=== PATIENT | female | born 1945 | race American Indian/Alaskan Native ===

== ENCOUNTER 2020-07-29 10:32 | Day surgery (SDC) | payer MEDICARE ==
[2020-07-29 11:35] LABS: #Basophils 0.1 thou/uL (0.0-0.2); #Eosinphils 0.2 thou/uL (0.0-0.7); #Lymphocytes 1.6 thou/uL (1.20-3.40); #Monocytes 0.5 thou/uL (0.11-0.59); #Neutrophils 3.3 thou/uL (1.40-6.50); %Basophils 1.4 % (0.0-1.0); %Eosinophils 3.8 % (0.0-10.0); %Lymphocytes 28.4 % (21.0-51.0); %Monocytes 7.9 % (0.0-10.0); %Neutrophils 58.4 % (42.0-75.0); Hemoglobin 11.8 g/dL (12.0-16.0); Mean Corpuscular HGB CONC 32.6 g/dL (32.0-36.0); Mean Corpuscular Hemoglobin 31.2 pg (27.0-31.0); Mean Platelet Volume 7.6 fL (7.4-10.4); Platelet Count 255 thou/uL (130-400); RBC Distribution Width 12.6 % (11.5-14.5); Red Blood Cell (RBC) Count 3.79 mill/uL (4.20-5.40); White Blood Cell (WBC) Count 5.6 thou/uL (4.8-10.8)
[2020-07-29 11:51] LABS: Anion Gap 9 mmol/L (10-20); BUN (Urea Nitrogen) 11 mg/dL (9.8-20.1); Calc. Creatinine Clearance 80 mL/min (70-130); Calcium 9.1 mg/dL (7.8-10.44); Carbon Dioxide 29 mmol/L (23-31); Chloride 106 mmol/L (98-107); Estimated GFR-MDRD Greater than 90; Glucose 82 mg/dL (83-110); Potassium 4.1 mmol/L (3.5-5.1); Sodium 140 mmol/L (136-145)
[2020-07-29] MEDS ORDERED: Dexmedetomidine 200 MCG/2 ML VIAL ONE (13:45)
[2020-07-29] MEDS ORDERED: Fentanyl 100 MCG/2 ML VIAL ONE (13:45)
[2020-07-29] MEDS ORDERED: Lidocaine 2% PF 5 ML VIAL ONE (13:58)
[2020-07-29] MEDS ORDERED: Bupivacaine HCl 0.5%/Epinephrine 1:200,000/PF 30 ml Vial ONE (13:58)
[2020-07-29] MEDS ORDERED: Midazolam HCl 5 mg/5 ml Vial ONE (14:09)
[2020-07-29] MEDS ORDERED: Ketamine 50 MG/ML (10ML VIAL) ONE (14:09)
--- NOTE | 2020-07-29 22:55 | OP ---
DATE OF PROCEDURE: 07/29/2020 PREOPERATIVE DIAGNOSIS: Skin malignancy, back, 3 cm. POSTOPERATIVE DIAGNOSIS: Skin malignancy, back, 3 cm. PROCEDURES PERFORMED: 1. Wide local excision, 3 cm of malignant skin cancer back. 2. Complex layered closure, 9 cm in length. ANESTHESIA: TIVA, local. ESTIMATED BLOOD LOSS: Minimal. COMPLICATIONS: None. SPECIMENS: Skin full-thickness marked with two short superior and one long lateral sent to Path for final diagnosis. DESCRIPTION OF PROCEDURE: The patient was taken to the operating room and laid on the supine on the operating room table. After general anesthetic was obtained, she was placed in a right lateral decubitus position. Her back wound was prepped and draped in a sterile fashion. In order to ellipse out with negative margin, it was a 3 cm in diameter incision so that made a 9 cm in length incision. Local anesthetic was applied, and the elliptical incision was made all the way down to the fascia. Extensive undermining was performed in order to allow for closure under no tension. The specimen was marked with 2 short superior and 1 long lateral sent to Path for final diagnosis. The wound was closed using 3-0 Vicryl, 4-0 Monocryl, and Dermabond. The patient was sent to Recovery in stable condition. All instrument counts, needle counts, and lap counts were correct. Job ID: [id number]
== END 2020-07-29 18:37 ==
LOC: SDC 10:32
PROVIDERS: ATTEND Surgery
PROC: 0HB6XZZ Excision of Back Skin, External Approach (ICD-10-PCS; principal; 2020-07-29)
DX: C44.519 Basal cell carcinoma of skin of other part of trunk (principal); K21.9 Gastro-esophageal reflux disease without esophagitis; M06.9 Rheumatoid arthritis, unspecified; J44.9 Chronic obstructive pulmonary disease, unspecified; I11.9 Hypertensive heart disease without heart failure; F31.9 Bipolar disorder, unspecified; M19.90 Unspecified osteoarthritis, unspecified site; Z79.899 Other long term (current) drug therapy; Z87.891 Personal history of nicotine dependence; Z88.1 Allergy status to other antibiotic agents
CPT/HCPCS: 36415; 80048; 85025; 88305; J0690; J2001; J2250; J3010

== ENCOUNTER 2023-01-29 09:19 | Inpatient (IN) | payer MEDICARE, OTHER ==
[~2023-01-29 09:19] MED LIST: Iopamidol-370 76% 500 ML MDV (1 ML CHARGE) ONE
[2023-01-29] MEDS ORDERED: Cefepime 2 GM VIAL ONE (10:08)
[2023-01-29] MEDS ORDERED: Acetaminophen 500 MG TAB ONE (10:12)
[2023-01-29 10:57] LABS: #Eosinphils 0.2 thou/uL (0.0-0.7); #Lymphocytes 1.3 thou/uL (1.20-3.40); #Monocytes 0.4 thou/uL (0.11-0.59); #Neutrophils 1.4 thou/uL (1.40-6.50); %Basophils 0.8 % (0.0-1.0); %Eosinophils 4.7 % (0.0-10.0); %Lymphocytes 39.6 % (21.0-51.0); %Monocytes 11.6 % (0.0-10.0); %Neutrophils 43.3 % (42.0-75.0); Hemoglobin 11.2 g/dL (12.0-16.0); Mean Corpuscular HGB CONC 33.7 g/dL (32.0-36.0); Mean Corpuscular Hemoglobin 33.7 pg (27.0-31.0); Mean Platelet Volume 7.7 fL (7.4-10.4); Platelet Count 201 10x3/uL (130-400); Red Blood Cell (RBC) Count 3.32 mill/uL (4.20-5.40); White Blood Cell (WBC) Count 3.3 10x3/uL (4.8-10.8)
[2023-01-29 11:19] LABS: ALT (SGPT) Less than 7 U/L (8-55); AST (SGOT) 20 U/L (5-34); Albumin 3.2 g/dL (3.4-4.8); Alkaline Phosphatase 78 U/L (40-110); Anion Gap 12 mmol/L (10-20); BUN (Urea Nitrogen) 21 mg/dL (9.8-20.1); Bilirubin, Total 0.4 mg/dL (0.2-1.2); Calc. Creatinine Clearance 0 mL/min (70-130); Calcium 9.4 mg/dL (7.8-10.44); Carbon Dioxide 24 mmol/L (23-31); Chloride 106 mmol/L (98-107); Estimated GFR 81; Globulin 5.2 g/dL (2.4-3.5); Glucose 116 mg/dL (83-110); Lipase 24 U/L (8-78); Protein, Total 8.4 g/dL (5.8-8.1); Sodium 138 mmol/L (136-145)
[2023-01-29] MEDS ORDERED: Vancomycin 1 GM/200 ML (FROZEN) BAG ONE (11:54)
[2023-01-29] MEDS ORDERED: Polyvinyl Alcohol 1.4%/Povidone 0.6% Opth Drops EA EYE PRN (13:05)
[2023-01-29] MEDS ORDERED: Senokot S 8.6-50 MG TAB PO PRN (13:11)
[2023-01-29] MEDS ORDERED: Ondansetron ODT 4 MG TAB PO PRN (13:11)
[2023-01-29] MEDS ORDERED: Calcium Carbonate 500 MG ChewTAB PO PRN (13:11)
[2023-01-29] MEDS ORDERED: Ondansetron PF 4 MG/2 ML Vial IVP PRN (13:11)
[2023-01-29] MEDS ORDERED: Acetaminophen 325 MG TAB PO PRN (13:11)
[2023-01-29 13:22] LABS: Bacteria/HPF 4+ HPF (None Seen); Bilirubin Negative (Negative); Blood, Urine 2+ (Negative); Clarity Turbid (Clear); Glucose, Urine (Dipstick) Normal (Negative); Ketone, Urine Negative (Negative); Leukocyte 500 Leu/uL (Negative); Nitrite 2+ (Negative); Protein, Urine (Dipstick) 50 mg/dL (Neg-Trace); RBC/HPF 21-50 HPF (0-3); Specific Gravity, Urine 1.034 (1.002-1.036); Squamous Epithelial None Seen HPF (0-3); Urobilinogen Normal mg/dL (Less than 2); WBC/HPF Greater than 50 HPF (0-3); pH, Urine 6.5 (5.0-9.0)
[2023-01-29] MEDS ORDERED: Sodium Chloride 0.9% 1,000 ML IV SCH (14:00)
[2023-01-29] MEDS ORDERED: fentaNYL 50 mcg/mL 1 mL Vial ONE (14:21)
[2023-01-29] MEDS ORDERED: SUGAMMADEX SODIUM 200 MG/2 ML VIAL ONE (14:21)
[2023-01-29] MEDS ORDERED: KETAMINE 100 MG/ML (5ML VIAL) ONE (14:37)
[2023-01-29] MEDS ORDERED: Midazolam HCl 2 mg/2 ml Vial ONE (14:37)
[2023-01-29 14:50] LABS: Lactic Acid 1.1 mmol/L (0.5-2.2)
[2023-01-29] MEDS ORDERED: Ondansetron HCl/PF 4 MG/2 ML Vial IVP PRN (15:18)
[2023-01-29] MEDS: Sodium Chloride 0.9% 1,000 ML IV SCH (17:29)
[2023-01-29 17:33] VITALS: BMI 24.4
[2023-01-29] MEDS ORDERED: HYDROcodone/Acetaminophen 5/325 mg Tablet PO SCH (17:45)
[2023-01-29] MEDS: ALPRAZolam 0.5 MG TAB PO SCH (21:21)
[2023-01-29] MEDS: Cefepime 1 GM in Sodium Chloride 0.9% 100 ML IVPB SCH (21:21)
[2023-01-29] MEDS: traZODone HCl 50 MG TAB PO SCH (21:21)
[2023-01-29] MEDS ORDERED: HYDROcodone/Acetaminophen 5/325 mg Tablet PO PRN (22:00)
[2023-01-30] MEDS: Sodium Chloride 0.9% 1,000 ML IV SCH (03:17)
[2023-01-30 09:16] LABS: ALT (SGPT) Less than 7 U/L (8-55); AST (SGOT) 14 U/L (5-34); Albumin 2.8 g/dL (3.4-4.8); Alkaline Phosphatase 71 U/L (40-110); Anion Gap 11 mmol/L (10-20); BUN (Urea Nitrogen) 14 mg/dL (9.8-20.1); Bilirubin, Total 0.4 mg/dL (0.2-1.2); Calc. Creatinine Clearance 80 mL/min (70-130); Calcium 8.6 mg/dL (7.8-10.44); Carbon Dioxide 20 mmol/L (23-31); Chloride 114 mmol/L (98-107); Estimated GFR 92; Globulin 4.6 g/dL (2.4-3.5); Glucose 77 mg/dL (83-110); Potassium 3.7 mmol/L (3.5-5.1); Protein, Total 7.4 g/dL (5.8-8.1); Sodium 141 mmol/L (136-145)
[2023-01-30] MEDS: risperiDONE 1 MG TAB PO SCH (09:20)
[2023-01-30] MEDS: DULoxetine 60 MG CAP PO SCH (09:21)
[2023-01-30] MEDS: buPROPion 75 MG TAB PO SCH (09:21)
[2023-01-30] MEDS: ALPRAZolam 0.5 MG TAB PO SCH ×2 (09:21→20:30)
[2023-01-30 10:46] LABS: Band 3 % (5-11); Hemoglobin 10.6 g/dL (12.0-16.0); Lymphocytes 45 % (21-51); MDiff Complete? YES; Mean Corpuscular HGB CONC 32.4 g/dL (32.0-36.0); Mean Corpuscular Hemoglobin 33.2 pg (27.0-31.0); Mean Platelet Volume 7.6 fL (7.4-10.4); Monocytes 14 % (0-10); Neutrophil 38 % (42-75); Platelet Count 195 10x3/uL (130-400); RBC Distribution Width 12.9 % (11.5-14.5); RBC Morphology Normal; Red Blood Cell (RBC) Count 3.21 mill/uL (4.20-5.40); White Blood Cell (WBC) Count 4.1 10x3/uL (4.8-10.8)
[2023-01-30] MEDS ORDERED: diphenhydrAMINE 50 MG/ML VIAL IVP PRN (11:24)
[2023-01-30] MEDS: Cefepime 1 GM in Sodium Chloride 0.9% 100 ML IVPB SCH (11:50)
[2023-01-30] MEDS ORDERED: VANCOMYCIN 1.25 GM/250 ML BAG 1.25 GM in Premix Bag 1 BAG IVPB SCH (12:00)
[2023-01-30] MEDS ORDERED: Piperacillin/Tazobactam 3.375 GM in Sodium Chloride 0.9% 100 ML IVPB SCH (12:00)
[2023-01-30] MEDS: Piperacillin/Tazobactam 3.375 GM in Sodium Chloride 0.9% 100 ML IVPB SCH ×2 (16:05→23:55)
[2023-01-30] MEDS: traZODone HCl 50 MG TAB PO SCH (20:30)
[2023-01-31 08:20] LABS: #Eosinphils 0.1 thou/uL (0.0-0.7); #Lymphocytes 1.8 thou/uL (1.20-3.40); #Monocytes 0.6 thou/uL (0.11-0.59); #Neutrophils 2.9 thou/uL (1.40-6.50); %Basophils 0.5 % (0.0-1.0); %Eosinophils 1.2 % (0.0-10.0); %Lymphocytes 32.8 % (21.0-51.0); %Monocytes 11.6 % (0.0-10.0); %Neutrophils 53.9 % (42.0-75.0); Mean Corpuscular HGB CONC 34.2 g/dL (32.0-36.0); Mean Corpuscular Hemoglobin 34.4 pg (27.0-31.0); Mean Platelet Volume 7.5 fL (7.4-10.4); Platelet Count 199 10x3/uL (130-400); RBC Distribution Width 12.8 % (11.5-14.5); Red Blood Cell (RBC) Count 2.91 mill/uL (4.20-5.40); White Blood Cell (WBC) Count 5.4 10x3/uL (4.8-10.8)
[2023-01-31 08:49] LABS: Anion Gap 10 mmol/L (10-20); BUN (Urea Nitrogen) 14 mg/dL (9.8-20.1); Calc. Creatinine Clearance 76 mL/min (70-130); Calcium 8.7 mg/dL (7.8-10.44); Carbon Dioxide 21 mmol/L (23-31); Chloride 109 mmol/L (98-107); Estimated GFR 91; Glucose 81 mg/dL (83-110); Potassium 3.3 mmol/L (3.5-5.1); Sodium 137 mmol/L (136-145)
[2023-01-31] MEDS ORDERED: Potassium Chloride 20 MEQ TAB PO SCH (09:00)
[2023-01-31] MEDS: DULoxetine 60 MG CAP PO SCH (09:27)
[2023-01-31] MEDS: Piperacillin/Tazobactam 3.375 GM in Sodium Chloride 0.9% 100 ML IVPB SCH ×2 (09:27→16:15)
[2023-01-31] MEDS: traMADol HCl 50 MG TAB PO SCH ×4 (09:27→20:09)
[2023-01-31] MEDS: buPROPion 75 MG TAB PO SCH (09:27)
[2023-01-31] MEDS: ALPRAZolam 0.5 MG TAB PO SCH ×2 (09:27→20:01)
[2023-01-31] MEDS: risperiDONE 1 MG TAB PO SCH (09:28)
[2023-01-31] MEDS: traZODone HCl 50 MG TAB PO SCH (20:01)
[2023-02-01] MEDS: Piperacillin/Tazobactam 3.375 GM in Sodium Chloride 0.9% 100 ML IVPB SCH ×3 (00:14→16:22)
[2023-02-01 06:58] LABS: Anion Gap 10 mmol/L (10-20); BUN (Urea Nitrogen) 11 mg/dL (9.8-20.1); Calc. Creatinine Clearance 78 mL/min (70-130); Calcium 8.8 mg/dL (7.8-10.44); Carbon Dioxide 24 mmol/L (23-31); Chloride 111 mmol/L (98-107); Estimated GFR 91; Glucose 80 mg/dL (83-110); Potassium 3.8 mmol/L (3.5-5.1); Sodium 141 mmol/L (136-145)
[2023-02-01] MEDS: buPROPion 75 MG TAB PO SCH (09:36)
[2023-02-01] MEDS: ALPRAZolam 0.5 MG TAB PO SCH ×2 (09:36→20:35)
[2023-02-01] MEDS: DULoxetine 60 MG CAP PO SCH (09:36)
[2023-02-01] MEDS: risperiDONE 1 MG TAB PO SCH (09:36)
[2023-02-01] MEDS: traMADol HCl 50 MG TAB PO SCH ×4 (09:37→20:34)
[2023-02-01] MEDS: traZODone HCl 50 MG TAB PO SCH (20:34)
[2023-02-01 20:51] VITALS: TEMP 98.3
[2023-02-02] MEDS: Piperacillin/Tazobactam 3.375 GM in Sodium Chloride 0.9% 100 ML IVPB SCH ×2 (00:39→08:37)
[2023-02-02 01:06] VITALS: BP 128/81
[2023-02-02] MEDS: traMADol HCl 50 MG TAB PO SCH (08:37)
[2023-02-02] MEDS: ALPRAZolam 0.5 MG TAB PO SCH (08:37)
[2023-02-02] MEDS: risperiDONE 1 MG TAB PO SCH (08:38)
[2023-02-02] MEDS: buPROPion 75 MG TAB PO SCH (08:39)
[2023-02-02] MEDS: DULoxetine 60 MG CAP PO SCH (08:39)
== END 2023-02-02 11:41 | DRG 659 ==
LOC: ERS 09:19 → SUATTDRO 09:19 → ERHOLD 13:28 → UNDOADMIN 13:28 → SDC 14:52 → T4-B 16:05
PROVIDERS: ADMIT Internal Medicine; ATTEND Family Medicine
PROC: 0T768DZ Dilation of Right Ureter with Intraluminal Device, Via Natural or Artificial Opening Endoscopic (ICD-10-PCS; principal; 2023-01-29)
DX: N13.6 Pyonephrosis (principal); G93.41 Metabolic encephalopathy; Z66 Do not resuscitate; J44.9 Chronic obstructive pulmonary disease, unspecified; B18.2 Chronic viral hepatitis C; F03.90 Unspecified dementia, unspecified severity, without behavioral disturbance, psychotic disturbance, mood disturbance, and anxiety; F31.9 Bipolar disorder, unspecified; M06.9 Rheumatoid arthritis, unspecified; K21.9 Gastro-esophageal reflux disease without esophagitis; Z88.1 Allergy status to other antibiotic agents; Z79.899 Other long term (current) drug therapy; Z90.49 Acquired absence of other specified parts of digestive tract; Z90.710 Acquired absence of both cervix and uterus
CPT/HCPCS: 36415; 51701; 71045; 74177; 74420; 80048; 80053; 81003; 81015; 83605; 83690; 84484; 85025; 87040; 87077; 87086; 87186; 93005; 93010; 96361; 96365; 96367; C2617; J0692; J1200; J1650; J2250; J2543; J3010; J3370-JW; J3490; J7050; Q9967

== ENCOUNTER 2023-02-13 14:19 | Outpatient (CLI) | payer MEDICARE ==
[2023-02-13 16:14] LABS: Mean Corpuscular HGB CONC 31.5 g/dL (32.0-36.0); Mean Corpuscular Hemoglobin 32.1 pg (27.0-33.0); Mean Corpuscular Volume 101.6 fl (81.6-98.3); Mean Platelet Volume 10.1 fl (7.4-10.4); Platelet Count 221 10x3/uL (150-450); RBC Distribution Width 14.6 % (11.5-14.5); Red Blood Cell (RBC) Count 3.12 10x6/uL (3.90-5.03); White Blood Cell (WBC) Count 3.6 10x3/uL (3.5-10.5)
[2023-02-13 16:20] LABS: Anion Gap 11 mmol/L (10-20); BUN (Urea Nitrogen) 13 mg/dL (9.8-20.1); Calc. Creatinine Clearance 0 mL/min (70-130); Calcium 8.7 mg/dL (7.8-10.44); Carbon Dioxide 29 mmol/L (23-31); Chloride 102 mmol/L (98-107); Estimated GFR 90; Glucose 99 mg/dL (83-110); Potassium 3.3 mmol/L (3.5-5.1); Sodium 139 mmol/L (136-145)
[2023-02-13 16:21] LABS: INR-International Normal Ratio 1.1; PTT 32.2 sec (22.0-33.0); Prothrombin Time 11.3 sec (9.5-12.1)
== END 2023-02-13 14:20 | disposition home or self-care (01) ==
LOC: LABBT 14:19
PROVIDERS: ATTEND Family Medicine
DX: Z01.818 Encounter for other preprocedural examination (principal); N20.1 Calculus of ureter
CPT/HCPCS: 80048; 85027; 85610; 85730; 93005; 93010

== ENCOUNTER 2023-03-18 09:52 | Inpatient (IN) | payer MEDICARE, OTHER ==
[2023-03-18] MEDS ORDERED: Ondansetron PF 4 MG/2 ML Vial ONE (10:24)
[2023-03-18 10:37] LABS: #Monocytes 0.3 thou/uL (0.11-0.59); #Neutrophils 3.3 thou/uL (1.40-6.50); %Basophils 0.2 % (0.0-1.0); %Lymphocytes 18.1 % (21.0-51.0); %Neutrophils 74.5 % (42.0-75.0); Hemoglobin 11.6 g/dL (12.0-16.0); Mean Corpuscular HGB CONC 32.6 g/dL (32.0-36.0); Mean Corpuscular Hemoglobin 33.3 pg (27.0-31.0); Mean Corpuscular Volume 102.3 fl (78.0-98.0); Mean Platelet Volume 9.7 fL (7.4-10.4); Platelet Count 195 10x3/uL (130-400); RBC Distribution Width 14.5 % (11.5-14.5); Red Blood Cell (RBC) Count 3.48 mill/uL (4.20-5.40); White Blood Cell (WBC) Count 4.4 10x3/uL (4.8-10.8)
[2023-03-18 11:02] LABS: ALT (SGPT) Less than 7 U/L (8-55); AST (SGOT) 14 U/L (5-34); Albumin 3.2 g/dL (3.4-4.8); Alkaline Phosphatase 78 U/L (40-110); Anion Gap 15 mmol/L (10-20); BUN (Urea Nitrogen) 21 mg/dL (9.8-20.1); Bilirubin, Total 0.6 mg/dL (0.2-1.2); Calc. Creatinine Clearance 0 mL/min (70-130); Calcium 8.7 mg/dL (7.8-10.44); Carbon Dioxide 21 mmol/L (23-31); Chloride 105 mmol/L (98-107); Estimated GFR 80; Globulin 4.8 g/dL (2.4-3.5); Glucose 104 mg/dL (83-110); Potassium 3.7 mmol/L (3.5-5.1); Sodium 137 mmol/L (136-145)
[2023-03-18 12:07] LABS: Bacteria/HPF 4+ HPF (None Seen); Bilirubin Negative (Negative); Blood, Urine 3+ (Negative); CAUTI Indications for Culture Dysuria,urgency,freq; Clarity Extra Turbid (Clear); Glucose, Urine (Dipstick) Normal (Negative); Ketone, Urine 10 mg/dL (Negative); Leukocyte 500 Leu/uL (Negative); Nitrite Negative (Negative); Protein, Urine (Dipstick) 100 mg/dL (Neg-Trace); Squamous Epithelial 0-3 HPF (0-3); Urobilinogen Normal mg/dL (Less than 2); WBC/HPF Greater than 50 HPF (0-3); pH, Urine 5.5 (5.0-9.0)
[2023-03-18 12:09] LABS: Urine Culture Reflex Yes Yes
[2023-03-18] MEDS ORDERED: Vancomycin 1 GM/200 ML (FROZEN) BAG ONE (13:09)
[2023-03-18] MEDS ORDERED: cefTRIAXone (ROCEPHIN) 1 GM VIAL ONE (13:09)
[2023-03-18] MEDS ORDERED: Senokot S 8.6-50 MG TAB PO PRN (15:07)
[2023-03-18] MEDS ORDERED: Acetaminophen 325 MG TAB PO PRN (15:07)
[2023-03-18] MEDS ORDERED: Meropenem 1 GM in Sodium Chloride 0.9% 100 ML IVPB SCH ×2 (15:15→23:59)
[2023-03-18] MEDS ORDERED: Sodium Chloride 0.9% 1,000 ML IV SCH (15:15)
[2023-03-18 17:31] VITALS: BMI 21.4
[2023-03-18] MEDS ORDERED: Piperacillin/Tazobactam 3.375 GM in Sodium Chloride 0.9% 100 ML IVPB SCH ×2 (18:00→20:00)
[2023-03-18] MEDS ORDERED: Ondansetron ODT 4 MG TAB PO PRN (20:48)
[2023-03-18] MEDS ORDERED: Ondansetron PF 4 MG/2 ML Vial IVP PRN (20:48)
[2023-03-18] MEDS: Piperacillin/Tazobactam 3.375 GM in Sodium Chloride 0.9% 100 ML IVPB SCH (21:35)
[2023-03-18] MEDS: DULoxetine 60 MG CAP PO SCH (21:37)
[2023-03-19] MEDS: Piperacillin/Tazobactam 3.375 GM in Sodium Chloride 0.9% 100 ML IVPB SCH ×3 (04:56→21:20)
[2023-03-19 07:10] LABS: #Eosinphils 0.1 thou/uL (0.0-0.7); #Monocytes 0.5 thou/uL (0.11-0.59); #Neutrophils 1.9 thou/uL (1.40-6.50); %Basophils 0.7 % (0.0-1.0); %Eosinophils 1.3 % (0.0-10.0); %Lymphocytes 44.6 % (21.0-51.0); %Monocytes 11.3 % (0.0-10.0); %Neutrophils 41.9 % (42.0-75.0); Hemoglobin 9.2 g/dL (12.0-16.0); Mean Corpuscular HGB CONC 31.9 g/dL (32.0-36.0); Mean Corpuscular Hemoglobin 32.6 pg (27.0-31.0); Mean Corpuscular Volume 102.1 fl (78.0-98.0); Platelet Count 149 10x3/uL (130-400); RBC Distribution Width 14.6 % (11.5-14.5); Red Blood Cell (RBC) Count 2.82 mill/uL (4.20-5.40); White Blood Cell (WBC) Count 4.5 10x3/uL (4.8-10.8)
[2023-03-19 07:31] LABS: Anion Gap 5 mmol/L (10-20); BUN (Urea Nitrogen) 15 mg/dL (9.8-20.1); Calc. Creatinine Clearance 64 mL/min (70-130); Calcium 8.4 mg/dL (7.8-10.44); Carbon Dioxide 26 mmol/L (23-31); Chloride 108 mmol/L (98-107); Estimated GFR 90; Glucose 86 mg/dL (83-110); Potassium 3.1 mmol/L (3.5-5.1); Sodium 136 mmol/L (136-145)
[2023-03-19] MEDS ORDERED: Potassium Chloride 20 MEQ TAB PO SCH (09:00)
[2023-03-19] MEDS ORDERED: Famotidine 20 MG TAB PO SCH (09:00)
[2023-03-19] MEDS ORDERED: Bupropion 150 MG XL TAB PO SCH (09:00)
[2023-03-19] MEDS: ALPRAZolam 0.5 MG TAB PO SCH ×2 (09:32→21:19)
[2023-03-19] MEDS: risperiDONE 1 MG TAB PO SCH (09:32)
[2023-03-19] MEDS: Divalproex Sodium 250 MG (DR) TAB PO SCH (09:32)
[2023-03-19] MEDS: traMADol HCl 50 MG TAB PO SCH ×2 (18:56→21:19)
[2023-03-19] MEDS ORDERED: Non-Formulary Item 1 EACH (Risperidone [Risperdal] 0.5 MG Tab) PO SCH (21:00)
[2023-03-19] MEDS: DULoxetine 60 MG CAP PO SCH (21:18)
[2023-03-19] MEDS: Famotidine 20 MG TAB PO SCH (21:18)
[2023-03-19] MEDS: risperiDONE 0.25 MG TAB PO SCH (21:19)
[2023-03-20] MEDS: Piperacillin/Tazobactam 3.375 GM in Sodium Chloride 0.9% 100 ML IVPB SCH ×3 (05:27→21:54)
[2023-03-20] MEDS: Famotidine 20 MG TAB PO SCH ×2 (09:06→20:15)
[2023-03-20] MEDS: risperiDONE 1 MG TAB PO SCH (09:06)
[2023-03-20] MEDS: ALPRAZolam 0.5 MG TAB PO SCH ×2 (09:06→20:15)
[2023-03-20] MEDS: buPROPion 75 MG TAB PO SCH (09:07)
[2023-03-20] MEDS: traMADol HCl 50 MG TAB PO SCH ×4 (09:07→20:16)
[2023-03-20] MEDS: Divalproex Sodium 250 MG (DR) TAB PO SCH (09:11)
[2023-03-20] MEDS: Divalproex Sodium 125 mg Sprinkle Capsule PO SCH (10:02)
[2023-03-20 12:54] LABS: Hemoglobin 9.4 g/dL (12.0-16.0); Mean Corpuscular HGB CONC 32.5 g/dL (32.0-36.0); Mean Corpuscular Hemoglobin 32.8 pg (27.0-31.0); Mean Corpuscular Volume 100.7 fl (78.0-98.0); Mean Platelet Volume 10.8 fL (7.4-10.4); Platelet Count 134 10x3/uL (130-400); RBC Distribution Width 14.6 % (11.5-14.5); Red Blood Cell (RBC) Count 2.87 mill/uL (4.20-5.40); White Blood Cell (WBC) Count 4.8 10x3/uL (4.8-10.8)
[2023-03-20 12:56] LABS: Anion Gap 10 mmol/L (10-20); BUN (Urea Nitrogen) 9 mg/dL (9.8-20.1); Calc. Creatinine Clearance 67 mL/min (70-130); Calcium 8.4 mg/dL (7.8-10.44); Carbon Dioxide 21 mmol/L (23-31); Chloride 110 mmol/L (98-107); Estimated GFR 91; Glucose 81 mg/dL (83-110); Magnesium 1.7 mg/dL (1.6-2.6); Potassium 2.7 mmol/L (3.5-5.1); Sodium 138 mmol/L (136-145)
[2023-03-20] MEDS: DULoxetine 60 MG CAP PO SCH (20:16)
[2023-03-20] MEDS: risperiDONE 0.25 MG TAB PO SCH (20:17)
[2023-03-21] MEDS: Piperacillin/Tazobactam 3.375 GM in Sodium Chloride 0.9% 100 ML IVPB SCH (06:23)
[2023-03-21 08:52] LABS: Anion Gap 9 mmol/L (10-20); BUN (Urea Nitrogen) 9 mg/dL (9.8-20.1); Calc. Creatinine Clearance 69 mL/min (70-130); Calcium 8.5 mg/dL (7.8-10.44); Carbon Dioxide 25 mmol/L (23-31); Chloride 109 mmol/L (98-107); Estimated GFR 92; Glucose 88 mg/dL (83-110); Sodium 140 mmol/L (136-145)
[2023-03-21 08:58] LABS: Potassium 2.5 mmol/L (3.5-5.1)
[2023-03-21] MEDS: ALPRAZolam 0.5 MG TAB PO SCH ×2 (09:47→20:18)
[2023-03-21] MEDS: Potassium Chloride 20 MEQ TAB PO SCH ×3 (09:47→22:07)
[2023-03-21] MEDS: Divalproex Sodium 125 mg Sprinkle Capsule PO SCH (09:47)
[2023-03-21] MEDS: Famotidine 20 MG TAB PO SCH ×2 (09:47→20:18)
[2023-03-21] MEDS: risperiDONE 1 MG TAB PO SCH (09:47)
[2023-03-21] MEDS: buPROPion 75 MG TAB PO SCH (09:47)
[2023-03-21] MEDS: traMADol HCl 50 MG TAB PO SCH ×4 (09:47→20:18)
[2023-03-21] MEDS: Linezolid 600 MG TAB PO SCH ×2 (09:51→20:18)
[2023-03-21] MEDS ORDERED: Potassium Chloride 20 MEQ in Premix Bag 1 BAG IVPB SCH (10:00)
[2023-03-21] MEDS: risperiDONE 0.25 MG TAB PO SCH (20:18)
[2023-03-21] MEDS: DULoxetine 60 MG CAP PO SCH (20:18)
[2023-03-22 07:29] LABS: #Basophils 0.1 thou/uL (0.0-0.2); #Eosinphils 0.2 thou/uL (0.0-0.7); #Monocytes 0.4 thou/uL (0.11-0.59); #Neutrophils 1.3 thou/uL (1.40-6.50); %Basophils 1.2 % (0.0-1.0); %Eosinophils 4.5 % (0.0-10.0); %Lymphocytes 52.4 % (21.0-51.0); %Monocytes 9.5 % (0.0-10.0); %Neutrophils 32.4 % (42.0-75.0); Hemoglobin 9.6 g/dL (12.0-16.0); Mean Corpuscular HGB CONC 32.4 g/dL (32.0-36.0); Mean Corpuscular Hemoglobin 32.9 pg (27.0-31.0); Mean Corpuscular Volume 101.4 fl (78.0-98.0); Mean Platelet Volume 10.4 fL (7.4-10.4); Platelet Count 163 10x3/uL (130-400); RBC Distribution Width 14.9 % (11.5-14.5); Red Blood Cell (RBC) Count 2.92 mill/uL (4.20-5.40)
[2023-03-22 08:06] LABS: Anion Gap 6 mmol/L (10-20); BUN (Urea Nitrogen) 9 mg/dL (9.8-20.1); Calc. Creatinine Clearance 74 mL/min (70-130); Calcium 8.6 mg/dL (7.8-10.44); Carbon Dioxide 26 mmol/L (23-31); Chloride 113 mmol/L (98-107); Estimated GFR 93; Glucose 73 mg/dL (83-110); Potassium 4.4 mmol/L (3.5-5.1); Sodium 141 mmol/L (136-145)
[2023-03-22] MEDS: buPROPion 75 MG TAB PO SCH (08:07)
[2023-03-22] MEDS: Divalproex Sodium 125 mg Sprinkle Capsule PO SCH (08:07)
[2023-03-22] MEDS: ALPRAZolam 0.5 MG TAB PO SCH (08:07)
[2023-03-22] MEDS: traMADol HCl 50 MG TAB PO SCH ×2 (08:07→12:45)
[2023-03-22] MEDS: risperiDONE 1 MG TAB PO SCH (08:07)
[2023-03-22] MEDS: Famotidine 20 MG TAB PO SCH (08:07)
[2023-03-22] MEDS: Linezolid 600 MG TAB PO SCH (08:52)
[2023-03-22 08:59] VITALS: BP 116/64; TEMP 97.6
== END 2023-03-22 13:09 | DRG 872 ==
LOC: ERS 09:52 → ERHOLD 13:15 → T4-A 17:37
PROVIDERS: ADMIT Internal Medicine Nephrology; ATTEND Internal Medicine
DX: A41.9 Sepsis, unspecified organism (principal); N30.00 Acute cystitis without hematuria; Z66 Do not resuscitate; M06.9 Rheumatoid arthritis, unspecified; G89.29 Other chronic pain; F31.9 Bipolar disorder, unspecified; J44.9 Chronic obstructive pulmonary disease, unspecified; N21.0 Calculus in bladder; B19.20 Unspecified viral hepatitis C without hepatic coma; F03.90 Unspecified dementia, unspecified severity, without behavioral disturbance, psychotic disturbance, mood disturbance, and anxiety; E87.6 Hypokalemia; Z88.1 Allergy status to other antibiotic agents; Z98.890 Other specified postprocedural states; Z88.8 Allergy status to other drugs, medicaments and biological substances; Z79.899 Other long term (current) drug therapy; Z74.01 Bed confinement status
CPT/HCPCS: 36415; 51701; 71045; 74176; 80048; 80053; 81001; 83605; 83735; 83880; 84484; 85025; 85027; 87040; 87077; 87086; 87186; 96361; 96365; 96367; 96375; J0696; J1650; J2405; J2543; J3370-JW; J3480; J3490; J7050